=== PATIENT | male | born 1990 | race Hispanic/Latino ===

== ENCOUNTER 2016-10-20 13:00 | Emergency (ER) | payer OTHER ==
[2016-10-20 13:26] VITALS: RESP 20
[2016-10-20] MEDS ORDERED: Sodium Chloride 0.9% 1,000 ML IV ONE (13:28)
[2016-10-20] MEDS ORDERED: Sodium Chloride 0.9% 1,000 ML ONE (13:39)
[2016-10-20 13:43] LABS: BASO % 0.2 % (0.0-2.0); EOS # 0.1 K/uL (0.0-0.7); HEMATOCRIT 44.6 % (35.0-51.0); LYMPH # 1.6 K/uL (1.0-4.3); MEAN CELL VOLUME 79.1 fL (80.0-94.0); MEAN CORPUSCULAR HEMOGLOBIN 25.4 pg (27.0-31.0); MEAN CORPUSCULAR HGB CONC 32.1 g/dL (33.0-37.0); MEAN PLATELET VOLUME 9.4 fL (7.2-11.7); MONO # 0.3 K/uL (0.0-0.8); MONO % 6.2 % (0.0-10.0); RED CELL DISTRIBUTION WIDTH 15.5 % (11.5-14.5); WHITE BLOOD COUNT 5.5 K/uL (4.8-10.8)
[2016-10-20 13:53] LABS: CHLORIDE 98 mmol/L (98-107); SODIUM 136 mmol/L (132-148)
[2016-10-20 13:54] LABS: POTASSIUM 3.7 mmol/L (3.6-5.2)
[2016-10-20 13:56] LABS: CARBON DIOXIDE 28 mmol/L (22-30); GFR AFRICAN-AMERICAN > 60
[2016-10-20 13:57] LABS: BLOOD UREA NITROGEN 15 mg/dL (9-20); CALCIUM 8.9 mg/dl (8.6-10.4); GLUCOSE,RANDOM 96 mg/dL (75-110)
--- NOTE | 2016-10-20 15:26 | C.PDOC ---
History Of Present Illness The patient, a 26 y/o male whose PMHx includes migraine headaches, presents to the ED for evaluation of headache which has been ongoing for "a while." Patient states his headaches are usually relieved from taking Tylenol but he found no relief this time. Patient also reports nausea, He denies fever, chills, neck pain. Time Seen by Provider: 10/20/16 13:19 Chief Complaint (Nursing): Headache Past Medical History Vital Signs: Last Vital Signs Temp 99.1 F 10/20/16 13:24 Pulse 83 10/20/16 13:24 Resp 20 10/20/16 13:24 BP 136/92 H 10/20/16 13:24 Pulse Ox 98 10/20/16 13:24 - Social History Hx Alcohol Use: Yes Hx Substance Use: No ED Course And Treatment - Laboratory Results Result Diagrams: 10/20/16 13:39 10/20/16 13:39 O2 Sat by Pulse Oximetry: 98
--- NOTE | 2016-10-20 15:29 | C.PDOC ---
History Of Present Illness The patient, a 26 y/o male whose PMHx includes migraine headaches, presents to the ED for evaluation of a headache which has been ongoing for "a while." Patient reports he usually finds relief from his headache after taking Tylenol, but found no relief this time. Patient also reports nausea. He denies fever, chills, vision change, neck pain, vomiting, extremity numbness/weakness. Time Seen by Provider: 10/20/16 13:19 Chief Complaint (Nursing): Headache History Per: Patient History/Exam Limitations: no limitations Onset/Duration Of Symptoms: Days Current Symptoms Are (Timing): Still Present Quality: Aching Preceeding Symptoms: denies: Visual Disturbances Associated Symptoms: denies: Photophobia, Blurred Vision, Nausea, Vomiting Additional History Per: Patient Past Medical History Reviewed: Historical Data, Nursing Documentation, Vital Signs Vital Signs: Last Vital Signs Temp 99.1 F 10/20/16 13:24 Pulse 83 10/20/16 13:24 Resp 20 10/20/16 13:24 BP 136/92 H 10/20/16 13:24 Pulse Ox 98 10/20/16 15:38 - Medical History PMH: No Chronic Diseases Surgical History: No Surg Hx Family History: States: Unknown Family Hx - Social History Hx Alcohol Use: Yes Hx Substance Use: No Review Of Systems Except As Marked, All Systems Reviewed And Found Negative. Constitutional: Negative for: Fever, Chills Eyes: Negative for: Vision Change Gastrointestinal: Positive for: Nausea. Negative for: Vomiting Neurological: Positive for: Headache. Negative for: Weakness, Numbness Physical Exam - Physical Exam Appears: Non-toxic, No Acute Distress Skin: Normal Color, Warm, Dry Head: Atraumatic, Normacephalic, No Tenderness, No Swelling Eye(s): bilateral: Normal Inspection, PERRL, EOMI Oral Mucosa: Moist Throat: Normal, No Erythema, No Exudate Neck: Normal ROM, Supple Chest: Symmetrical, No Deformity, No Tenderness Cardiovascular: Rhythm Regular, No Murmur Respiratory: Normal Breath Sounds, No Rales, No Rhonchi, No Wheezing Back: Normal Inspection, No Vertebral Tenderness, No Paraspinal Tenderness Extremity: Normal ROM, Capillary Refill (less than 2 seconds ) Neurological/Psych: Oriented x3, Normal Speech, Normal Cognition, Other (no focal deficits ) Gait: Steady ED Course And Treatment - Laboratory Results Result Diagrams: 10/20/16 13:39 10/20/16 13:39 Lab Interpretation: Normal O2 Sat by Pulse Oximetry: 98 (on RA) Pulse Ox Interpretation: Normal Progress Note: labs ordered and reviewed. Patient received Reglan IV, Toradol IV , and IV Fluids. On re-evaluation feeling better, neuro intact Reassessment Condition: Improved Disposition Counseled Patient/Family Regarding: Studies Performed, Diagnosis, Need For Followup - Disposition Disposition: HOME/ ROUTINE Disposition Time: 15:45 Condition: STABLE Instructions: Migraine Headache (ED) - POA Present On Arrival: None - Clinical Impression Clinical Impression: Headache - PA / MANAGER OUTREACH / Resident Statement MD/DO has reviewed & agrees with the documentation as recorded. - Scribe Statement The provider has reviewed the documentation as recorded by the Scribe (Kiana Morales) All medical record entries made by the Scribe were at my direction and personally dictated by me. I have reviewed the chart and agree that the record accurately reflects my personal performance of the history, physical exam, medical decision making, and the department course for this patient. I have also personally directed, reviewed, and agree with the discharge instructions and disposition.
[2016-10-20 15:57] VITALS: BP 136/90; PULSE 65; TEMP 97.9; O2SAT 100
== END 2016-10-20 15:57 | disposition home or self-care (01) ==
LOC: C.ER 13:00
DX: R51 Headache (principal)
CPT/HCPCS: 80048; 85025; 96361; 96374; 96375; 99284; J1885; J2765; J7040